=== PATIENT | male | born 1940 | race Caucasian/White ===

== ENCOUNTER → 2018-11-28 08:09 | Outpatient (CLI) | payer MEDICARE, OTHER, SELFPAY ==
--- NOTE | 2018-11-28 | DI.US.S_ITS ---
PROCEDURE: US SOFT TISSUE HEAD AND NECK INDICATIONS: LEFT PAROTID AREA MASS; POSSIBLE FNA TECHNIQUE: Real-time scanning was performed of the neck region of interest, with image documentation. COMPARISON: Outside Facility, RG, CT MAXILLOFACIAL W / WO CONTRAST, 11/09/2018, 14:58. Outside Facility, RG, US SOFT TISSUE HEAD OR NECK, 11/07/2018, 16:20. FINDINGS: The previously identified heterogeneous mass on the prior study from 11/07/18 is not visible on the prior examination. IMPRESSION: Previous identified heterogeneous mass on the prior study not visible. Therefore planned FNA was canceled. If there is sufficient clinical suspicion, a repeat ultrasound, or CT could be performed in 3 months. Alternatively as previously discussed on the prior CT from 11/09/18, a PET/CT could also assess for sonographically occult recurrent tumor, if there is high clinical suspicion. Dictated by: Alex Walter M.D. on 11/28/2018 at 17:44 Approved by: Alex Walter M.D. on 11/28/2018 at 17:46
== END ==
PROVIDERS: Visit Provider Student in an Organized Health Care Education/Training Program
DX: K11.9 Disease of salivary gland, unspecified (principal)
CPT/HCPCS: 76536

== ENCOUNTER → 2022-07-01 14:32 | Outpatient (CLI) | payer MEDICARE, OTHER, SELFPAY ==
--- NOTE | 2022-07-01 | DI.NM.S_ITS ---
PROCEDURE: NM EXERCISE TREADMILL NON NUC COMPARISON: None. INDICATIONS: Other forms of dyspnea FINDINGS: The patient exercised for 3 minutes and 46 seconds reaching 4.6 METs, DELFINO +17%. Normal BP response to exercise. No diagnostic ST changes or ectopy during the study. No angina during the study. IMPRESSION: Low risk, normal treadmill ECG only stress test with reduced exercise tolerance (DELFINO +17%). Dictated by: Gregg Moreno MD on 07/04/2022 at 13:09 Approved by: Gregg Moreno MD on 07/04/2022 at 13:11
== END ==
PROVIDERS: PCP Student in an Organized Health Care Education/Training Program; Referring Provider Student in an Organized Health Care Education/Training Program; Visit Provider Student in an Organized Health Care Education/Training Program
DX: R06.09 Other forms of dyspnea (principal)
CPT/HCPCS: 93017

== ENCOUNTER → 2022-08-22 15:03 | Outpatient (CLI) | payer MEDICARE, OTHER, SELFPAY ==
--- NOTE | 2022-08-22 15:07 | DI.NM.S_ITS ---
PROCEDURE: NM EXERCISE TREADMILL NON NUC COMPARISON: None INDICATIONS: DYSPNEA FINDINGS: Rest ECG sinus rhythm. Georges protocol 3:11, maximum heart rate 105 bpm (76% peak predicted), maximum blood pressure 170/90, 4.6 METS, DELFINO +29%. Stress ECG sinus tachycardia, no ST segment changes or arrhythmias. The patient did not complain of exercise-induced chest pain. IMPRESSION: Decreased sensitivity exercise stress test due to inability to achieve target heart rate. No evidence of inducible ischemia at the level of heart rate achieved. Normal hemodynamic response. Reduced exercise capacity. Dictated by: Carley Casas D.O. on 08/22/2022 at 16:36 Approved by: Carley Casas D.O. on 08/22/2022 at 16:44
== END ==
PROVIDERS: PCP Student in an Organized Health Care Education/Training Program; Referring Provider Student in an Organized Health Care Education/Training Program; Visit Provider Student in an Organized Health Care Education/Training Program
DX: R06.09 Other forms of dyspnea (principal)
CPT/HCPCS: 93017

== ENCOUNTER 2022-12-28 11:46 | Outpatient (CLI) | payer MEDICARE, OTHER, SELFPAY ==
[2022-12-28] VITALS (8 sets, daily range): BP systolic 137–172; BP diastolic 71–89; PULSE 52–78; RESP 16–20; TEMP 36.8; O2SAT 92–100
--- NOTE | 2022-12-28 11:47 | DI.RAD.S_ITS ---
PROCEDURE: PAIN L INTERLAMINAR/CAUDAL INJ INDICATIONS: RADICULOPATHY COMPARISON: [facility], CR, XR LUMBAR SPINE WITH FLEXION EXTENSION 5 VIEWS, 10/11/2022, 12:49. FINDINGS: Fluoroscopic spot filming was performed to verify placement of a spinal needle at the L5-S1 level, as labeled on the films. Appropriate location of the needle tip was confirmed by injection of iodinated contrast. IMPRESSION: No significant intraprocedural abnormality. Dictated by: Warren Moreira M.D. on 12/28/2022 at 17:37 Approved by: Warren Moreira M.D. on 12/28/2022 at 17:38
[2022-12-28] MEDS: MIDAZOLAM 2 MG/2 ML VIAL 1 MG IV (13:12)
[2022-12-28] MEDS: DEXAMETHASONE 10 MG/ML VIAL INJ (13:16)
[2022-12-28] MEDS: IOPAMIDOL 15 ML VIAL 3 ML INJ (13:16)
--- NOTE | 2022-12-28 16:28 | P.PCN_ITS ---
Date/Time/Diagnoses Date of procedure: 12/28/22 Time of procedure: 13:00 Procedure Notes Physician: Wai Vidal Total Fluoroscopy time (seconds): 11 Total sedation minutes: 10 Procedure in detail & Post-procedure care: L5-S1 Interlaminar Epidural Steroid Injection Indications: Armani is presenting for treatment of lumbar radiculopathy with low back and leg pain. Preoperative diagnosis: Lumbar radiculopathy Postoperative diagnosis: Same Focused Examination: Ax3 Mood and affect are normal Vital Signs: VSS ASA: 2 Consent: Following review of allergies and potential side effects/complications, including, but not necessarily limited to, infection, allergic reaction, local tissue breakdown, stroke, temporary or permanent nerve injury, paralysis, and possible , the patient indicated that they understood and agreed to proceed.? An informed consent document was signed by the patient, witnessed by a nurse and placed in the patient's chart.? Additionally, other treatment options including medications and physical therapy were reviewed with the patient. All questions were answered. Site was then marked. Anesthesia: After review of previous anesthetic history and IV conscious sedation, the patient was deemed safe to proceed with today's procedure with IV conscious sedation. IV sedation was accomplished with midazolam 1 mg administered by the RN after order by Dr. Vidal. Sedation was titrated to patient comfort during the course of the procedure. Patient remained responsive to all verbal commands. Position: Prone Monitoring: NIBP, Pulse oximetry, 3 lead EKG Needle used: 18 G 3.5? Tuohy Contrast: Isovue 300M Injectate: Dexamethasone 10 mg with 1% lidocaine 2 mL Technique: The skin was prepped with chloraprep and then draped in a sterile fashion. Time out was performed as per protocol. Oxygen applied via NC. Skin and subcutaneous structures of the needle entry site was then infiltrated with 3 mL of lidocaine 1%. Under AP, lateral and contralateral oblique fluoroscopic control, the Tuohy needle was guided into the L5-S1 epidural space. The space was accessed with loss of resistance technique. Isovue 300M was then injected and the spread was consistent with the epidural space. There was no evidence for intravascular or intrathecal uptake. After negative aspiration, the above- mentioned injectate was then slowly administered and the needle withdrawn. The patient expressed no unusual discomfort or paresthesias during the injection. Band-Aids applied to injection sites. EBL: less than 1 ml Complications: None Post Procedure: Patient was taken to the recovery and monitored. The patient was provided a Pain Log to continue to record the patient's response to the target- specific procedure prior to the patient's follow-up visit with the referring physician. Patient was stable upon discharge. Detailed post procedure instructions were provided. Patient was asked to call in the event of worsening pain, fever, weakness, numbness or bladder or bowel incontinence.
== END 2022-12-28 13:50 | disposition home or self-care (01) ==
PROVIDERS: PCP Student in an Organized Health Care Education/Training Program; Referring Provider Anesthesiology; Visit Provider Anesthesiology
DX: M54.16 Radiculopathy, lumbar region (principal)
CPT/HCPCS: 62323; 99152; J1100; J2250

== ENCOUNTER → 2023-02-14 11:36 | Outpatient (CLI) | payer MEDICARE, OTHER, SELFPAY ==
--- NOTE | 2023-02-14 11:37 | DI.MRI.S_ITS ---
PROCEDURE: MR PELVIS WO CON INDICATIONS: h/o sacral trauma TECHNIQUE: Noncontrast axial and oblique coronal T1 spin echo and STIR through the sacrum. COMPARISON: None. FINDINGS: Image quality: Excellent. Bones: No acute trabecular bone injury or fracture is seen. Degenerative changes are seen at the sacroiliac joints bilaterally and in the included lumbar spine. No bony ankylosis or signs of sacroiliitis. No suspicious marrow space occupying lesions. Soft tissues: No presacral masses or edema. Grade 2-3 fatty infiltration of the paraspinous musculature. Rectum appears normal in caliber and wall thickness. No pathologic free pelvic fluid. IMPRESSION: 1. No acute sacral fracture or osseous contusion is seen. 2. [id number] sacroiliac osteoarthrosis. Degenerative changes are noted in the included lumbar spine. Approved by: Luis Rider M.D. on 02/14/2023 at 16:39
== END ==
PROVIDERS: PCP Student in an Organized Health Care Education/Training Program; Referring Provider Anesthesiology; Visit Provider Anesthesiology
DX: M54.17 Radiculopathy, lumbosacral region (principal); M47.898 Other spondylosis, sacral and sacrococcygeal region
CPT/HCPCS: 72195

== ENCOUNTER 2023-05-17 13:30 | Outpatient (CLI) | payer MEDICARE, OTHER, SELFPAY ==
[2023-05-17] VITALS (8 sets, daily range): BP systolic 136–173; BP diastolic 77–84; PULSE 54–63; RESP 16–20; TEMP 35.9; O2SAT 98–100
[2023-05-17] MEDS: MIDAZOLAM 2 MG/2 ML VIAL 1 MG IV (14:08)
[2023-05-17] MEDS: DEXAMETHASONE 10 MG/ML VIAL INJ (14:17)
[2023-05-17] MEDS: iopamidoL 15 ML VIAL 3 ML INJ (14:17)
--- NOTE | 2023-05-17 15:30 | DI.RAD.S_ITS ---
PROCEDURE: PAIN JOINT INJECTION MID INDICATIONS: COCCYDYNIA COMPARISON: None. TECHNIQUE: Three fluoroscopic spot films and 20 seconds of fluoroscopic time was utilized during an intraoperative pain injection of the coccyx FINDINGS: Lateral projection of the coccyx shows needle placement in intersegmental coccyx IMPRESSION: Fluoroscopic guidance Approved by: Singh Delgado M.D. on 05/17/2023 at 18:33
--- NOTE | 2023-05-17 15:33 | P.PCN_ITS ---
Date/Time/Diagnoses Date of procedure: 05/17/23 Time of procedure: 14:00 Procedure Notes Physician: Wai Vidal Total Fluoroscopy time (seconds): 20 Total sedation minutes: 16 Procedure in detail & Post-procedure care: Sacrococcygeal Joint Injection Indications: Jameel is presenting for treatment of coccydynia with low back pain. Preoperative diagnosis: Coccydynia Postoperative diagnosis: Same Focused Examination: Ax3 Mood and affect are normal Vital Signs: VSS ASA: 2 Consent: Following review of allergies and potential side effects/complications, including, but not necessarily limited to, infection, allergic reaction, local tissue breakdown, stroke, temporary or permanent nerve injury, paralysis, and possible , the patient indicated that they understood and agreed to proceed.? An informed consent document was signed by the patient, witnessed by a nurse and placed in the patient's chart.? Additionally, other treatment options including medications and physical therapy were reviewed with the patient. All questions were answered. Site was then marked. Anesthesia: After review of previous anesthetic history and IV conscious sedation, the patient was deemed safe to proceed with today's procedure with IV conscious sedation. IV sedation was accomplished with midazolam 1 mg administered by the RN after order by Dr. Vidal. Sedation was titrated to patient comfort during the course of the procedure. Patient remained responsive to all verbal commands. Position: Prone Monitoring: NIBP, Pulse oximetry, 3 lead EKG Needle used: 25 gauge, 1.5 in hypodermic needle Contrast: Isovue 300-M 2mL Injectate: Depo-Medrol 40 mg with 1% lidocaine 4 mL Technique: The skin was prepped with chloraprep and then draped in a sterile fashion. Time out was performed as per protocol. Oxygen applied via NC. The entry point for entering/approaching the sacrococcygeal joint was identified. Skin and subcutaneous structures of the needle entry site was then infiltrated with 3 mL of lidocaine 1%. Under AP and lateral control, the needle was guided through the sacrococcygeal joint to the anterior aspect of the joint. Contrast was then injected and the spread was consistent with the expected location of the ganglion impar. After negative aspiration, 3 mL of injectate were injected at this location. The needle was then withdrawn slightly so that the tip was within the sacrococcygeal joint. Intra-articular placement was confirmed with contrast. After negative aspiration, the remaining 2 mL of injectate was placed intra-articularly. There was no evidence for intravascular, peritoneal or spread within the intestines. The needles were then withdrawn. The patient expressed no unusual discomfort or paresthesias during needle positioning or injection. Band-Aids applied to injection sites. EBL: less than 1 ml Complications: None Post Procedure: Patient was taken to the recovery and monitored. The patient was provided a Pain Log to continue to record the patient's response to the target- specific procedure prior to the patient's follow-up visit with the referring physician. Patient was stable upon discharge. Detailed post procedure in structions were provided. Patient was asked to call in the event of worsening pain, fever, weakness, numbness or bladder or bowel incontinence.
== END 2023-05-17 14:43 | disposition home or self-care (01) ==
PROVIDERS: PCP Student in an Organized Health Care Education/Training Program; Referring Provider Anesthesiology; Visit Provider Anesthesiology
DX: M53.3 Sacrococcygeal disorders, not elsewhere classified (principal)
CPT/HCPCS: 20605; 77002; 99152; J1100; J2250

== ENCOUNTER 2023-09-13 12:26 | Outpatient (CLI) | payer MEDICARE, OTHER, SELFPAY ==
[2023-09-13] VITALS (8 sets, daily range): BP systolic 117–142; BP diastolic 65–76; PULSE 62–71; RESP 14–22; TEMP 36.9; O2SAT 97–99
--- NOTE | 2023-09-13 13:30 | DI.RAD.S_ITS ---
PROCEDURE: PAIN JOINT INJECTION MID INDICATIONS: Coccydynia COMPARISON: [facility], CR, XR LUMBAR SPINE WITH FLEXION EXTENSION 5 VIEWS, 10/11/2022, 12:49. MR, MR PELVIS WO CON, 02/14/2023, 11:58. TECHNIQUE: 3 fluoroscopy images obtained for pain management. FINDINGS: Joint injected: Coccyx IMPRESSION: Fluoroscopy guidance for pain management.. Dictated by: Melchor Solares M.D. on 09/13/2023 at 17:04 Approved by: Melchor Solares M.D. on 09/13/2023 at 17:05
[2023-09-13] MEDS: MIDAZOLAM 2 MG/2 ML VIAL 1 MG IV (13:35)
[2023-09-13] MEDS: iopamidoL 15 ML VIAL 3 ML INJ (13:39)
[2023-09-13] MEDS: DEXAMETHASONE 10 MG/ML VIAL IV (13:51)
--- NOTE | 2023-09-13 13:59 | PC.NURSE ---
Decadron Use During patient's procedure today Dr. Vidal asked this RN to get decadron 10mg for patient's injection. Dr. Vidal stated that he would be using the decadron for the coccyx injection rather than the DEPO.
--- NOTE | 2023-09-13 16:54 | P.PCN_ITS ---
Date/Time/Diagnoses Date of procedure: 09/13/23 Time of procedure: 13:30 Procedure Notes Physician: Wai Vidal Total Fluoroscopy time (seconds): 22 Total sedation minutes: 16 Procedure in detail & Post-procedure care: Coccyx/ganglion impar injection Indications: Armani is presenting for treatment of coccydynia with low back pain. Preoperative diagnosis: Coccydynia Postoperative diagnosis: Same Focused Examination: Ax3 Mood and affect are normal Vital Signs: VSS ASA: 2 Consent: Following review of allergies and potential side effects/complications, including, but not necessarily limited to, infection, allergic reaction, local tissue breakdown, stroke, temporary or permanent nerve injury, paralysis, and possible , the patient indicated that they understood and agreed to proceed.? An informed consent document was signed by the patient, witnessed by a nurse and placed in the patient's chart.? Additionally, other treatment options including medications and physical therapy were reviewed with the patient. All questions were answered. Site was then marked. Anesthesia: After review of previous anesthetic history and IV conscious sedation, the patient was deemed safe to proceed with today's procedure with IV conscious sedation. IV sedation was accomplished with midazolam 1 mg administered by the RN after order by Dr. Vidal. Sedation was titrated to patient comfort during the course of the procedure. Patient remained responsive to all verbal commands. Position: Prone Monitoring: NIBP, Pulse oximetry, 3 lead EKG Needle used: 25 gauge, 1.5 in hypodermic needle Contrast: Isovue 300-M 2mL Injectate: Dexamethasone 10 mg with 0.5% bupivacaine 2 mL Technique: The skin was prepped with chloraprep and then draped in a sterile fashion. Time out was performed as per protocol. Oxygen applied via NC. The entry point for entering/approaching the sacrococcygeal joint was identified. Skin and subcutaneous structures of the needle entry site was then infiltrated with 3 mL of lidocaine 1%. Under AP and lateral control, the needle was guided through the sacrococcygeal joint to the anterior aspect of the joint. Contrast was then injected and the spread was consistent with the expected location of the ganglion impar. After negative aspiration, 3 mL of injectate were injected at this location. The needle was then withdrawn slightly so that the tip was within the sacrococcygeal joint. Intra-articular placement was confirmed with contrast. After negative aspiration, the remaining 2 mL of injectate was placed intra-articularly. There was no evidence for intravascular, peritoneal or spread within the intestines. The needles were then withdrawn. The patient expressed no unusual discomfort or paresthesias during needle positioning or injection. Band-Aids applied to injection sites. EBL: less than 1 ml Complications: None Post Procedure: Patient was taken to the recovery and monitored. The patient was provided a Pain Log to continue to record the patient's response to the target- specific procedure prior to the patient's follow-up visit with the referring physician. Patient was stable upon discharge. Detailed post procedure instructions were provided. Patient was asked to call in the event of worsening pain, fever, weakness, numbness or bladder or bowel incontinence.
== END 2023-09-13 14:09 | disposition home or self-care (01) ==
LOC: RAD 12:27
PROVIDERS: PCP Student in an Organized Health Care Education/Training Program; Referring Provider Anesthesiology; Visit Provider Anesthesiology
DX: M53.3 Sacrococcygeal disorders, not elsewhere classified (principal)
CPT/HCPCS: 20605; 77002; 99152; J1010; J1100; J2250

== ENCOUNTER → 2023-12-07 09:48 | Outpatient (CLI) | payer MEDICARE, OTHER, SELFPAY ==
[2023-12-07 10:38] LABS: Add Manual Diff / Slide Review NO; Basophils Absolute Auto 100 /uL (0-100); Basophils Percent Auto 0.9 % (0-2); Eosinophils Absolute Auto 200 /uL (0-450); Eosinophils Percent Auto 3.6 % (2-4); Hematocrit 38.9 % (41-53); Hemoglobin 13.2 g/dL (13.5-17.5); Lymphocytes Absolute Auto 1300 /uL (1100-4500); Mean Corpuscular HGB Conc 33.8 % (30-36); Mean Corpuscular Hemoglobin 32.7 PG (26-34); Mean Corpuscular Volume 96.6 fL (80-100); Monocytes Absolute Auto 800 /uL (0-900); Monocytes Percent Auto 12.2 % (3-14); Neutrophils Absolute Auto 4000 /uL (1500-7000); Neutrophils Percent Auto 63.3 % (50-75); Platelet Count 275 X10^3/uL (150-400); Red Blood Cell Count 4.02 X10^6/uL (4.5-5.9); Red Cell Distribution Width 13.3 % (11.6-14.8); White Blood Cell Count 6.3 X10^3/uL (4.5-11.0)
[2023-12-07 10:50] LABS: Hemoglobin A1C% w Est Avg Glu 7.5 % (4.0-6.0)
[2023-12-07 11:00] LABS: Alanine Aminotransferase 15 IU/L (<50); Albumin 4.4 g/dL (3.5-5.0); Albumin Globulin Ratio 1.6 (1.0-2.8); Alkaline Phosphatase 94 U/L (38-126); Aspartate Aminotransferase 25 IU/L (17-59); BUN Creatinine Ratio 15.8 (6-22); Bilirubin Total 0.8 mg/dL (0.2-1.3); Blood Urea Nitrogen 23 mg/dL (9-20); Calcium 9.7 mg/dL (8.4-10.2); Carbon Dioxide 25 mmol/L (22-32); Chloride 105 mmol/L (98-107); Estimated Glomerular Filt Rate 47 mL/min (>60); Globulin 2.8 g/dL (1.7-4.1); Glucose 156 mg/dL (80-110); HEMOLYSIS < 15 (0-50); Potassium 5.2 mmol/L (3.4-5.1); Sodium 138 mmol/L (137-145); Total Protein 7.2 g/dL (6.3-8.2)
[2023-12-07 11:32] LABS: Prostate Specific Antigen Scrn 3.06 ng/mL (0.1-4.0)
--- NOTE | 2023-12-07 11:33 | DI.RAD.S_ITS ---
PROCEDURE: XR ELBOW RT MIN 3V INDICATIONS: bilateral hand/wrist/elbow pain TECHNIQUE: 3 views of the elbow were acquired. COMPARISON: None. FINDINGS: Bones: No fractures or dislocations. No suspicious bony lesions. Soft tissues: No elbow joint effusion. No suspicious soft tissue calcifications. IMPRESSION: No acute bone bony abnormality or significant joint effusion. Dictated by: Ector Hicks M.D. on 12/07/2023 at 15:24 Approved by: Ector Hicks M.D. on 12/07/2023 at 15:25
--- NOTE | 2023-12-07 11:33 | DI.RAD.S_ITS ---
PROCEDURE: XR WRIST RT MIN 3V INDICATIONS: bilateral hand/wrist/elbow pain TECHNIQUE: 4 views of the wrist were acquired. COMPARISON: None. FINDINGS: Bones: No fractures or dislocations. No suspicious bony lesions. Arthritic changes with joint space narrowing, sclerosis and mild subluxation in the 1st carpometacarpal joint. There is joint space narrowing in the scaphoid trapezial joint. Soft tissues: No suspicious soft tissue calcifications. 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 Dictated by: Ector Hicks M.D. on 12/07/2023 at 15:28 Approved by: Ector Hicks M.D. on 12/07/2023 at 15:30
--- NOTE | 2023-12-07 11:33 | DI.RAD.S_ITS ---
PROCEDURE: XR WRIST LT MIN 3V INDICATIONS: bilateral hand/wrist/elbow pain TECHNIQUE: 4 views of the wrist were acquired. COMPARISON: None. FINDINGS: Bones: No fractures or dislocations. No suspicious bony lesions. Arthritic changes are noted in the 1st carpal metacarpal joint with joint space narrowing, sclerosis and mild subluxation. Soft tissues: No suspicious soft tissue calcifications. 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 Dictated by: Ector Hicks M.D. on 12/07/2023 at 15:25 Approved by: Ector Hicks M.D. on 12/07/2023 at 15:27
--- NOTE | 2023-12-07 11:33 | DI.RAD.S_ITS ---
PROCEDURE: XR ELBOW LT MIN 3V INDICATIONS: bilateral hand/wrist/elbow pain TECHNIQUE: 3 views of the elbow were acquired. COMPARISON: None. FINDINGS: Bones: No fractures or dislocations. No suspicious bony lesions. Soft tissues: No elbow joint effusion. No suspicious soft tissue calcifications. IMPRESSION: No acute bony abnormality or significant joint effusion. Dictated by: Ector Hicks M.D. on 12/07/2023 at 15:22 Approved by: Ector Hicks M.D. on 12/07/2023 at 15:24
--- NOTE | 2023-12-07 11:33 | DI.RAD.S_ITS ---
PROCEDURE: XR HAND LT MIN 3V INDICATIONS: bilateral hand/wrist/elbow pain TECHNIQUE: 3 views of the hand(s) acquired. COMPARISON: None. FINDINGS: Bones: No fractures or dislocations. Carpal bones are normally aligned. No suspicious bony lesions. Osteoarthritic changes in the 1st carpal metacarpal joint. Soft tissues: No suspicious soft tissue calcifications. 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 Dictated by: Ector Hicks M.D. on 12/07/2023 at 15:32 Approved by: Ector Hicks M.D. on 12/07/2023 at 15:33
--- NOTE | 2023-12-07 11:33 | DI.RAD.S_ITS ---
PROCEDURE: XR HAND RT MIN 3V INDICATIONS: bilateral hand/wrist/elbow pain TECHNIQUE: 3 views of the hand(s) acquired. COMPARISON: None. FINDINGS: Bones: No fractures or dislocations. Carpal bones are normally aligned. No suspicious bony lesions. Osteoarthritic changes noted in the 1st carpometacarpal joint. Soft tissues: No suspicious soft tissue calcifications. 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 Dictated by: Ector Hicks M.D. on 12/07/2023 at 15:30 Approved by: Ector Hicks M.D. on 12/07/2023 at 15:32
== END ==
PROVIDERS: PCP Family Medicine; Referring Provider Family Medicine; Visit Provider Family Medicine
DX: E11.9 Type 2 diabetes mellitus without complications (principal); Z12.5 Encounter for screening for malignant neoplasm of prostate; N40.1 Benign prostatic hyperplasia with lower urinary tract symptoms; N13.8 Other obstructive and reflux uropathy; K21.9 Gastro-esophageal reflux disease without esophagitis; M25.531 Pain in right wrist; M25.532 Pain in left wrist; M25.521 Pain in right elbow; M25.522 Pain in left elbow; M79.642 Pain in left hand; M79.641 Pain in right hand; M19.032 Primary osteoarthritis, left wrist; M19.031 Primary osteoarthritis, right wrist; M19.042 Primary osteoarthritis, left hand; M19.041 Primary osteoarthritis, right hand
CPT/HCPCS: 36415; 73080; 73110; 73130; 80053; 83036; 85025; G0103

== ENCOUNTER → 2023-12-11 11:08 | Outpatient (CLI) | payer MEDICARE, OTHER, SELFPAY ==
--- NOTE | 2023-12-11 11:09 | DI.CT.S_ITS ---
PROCEDURE: CT PEL WO CON INDICATIONS: Sacrococcygeal disorders, not elsewhere classified TECHNIQUE: Noncontrast 3 mm axial sections acquired through the bony pelvis, with coronal and sagittal reformatting. COMPARISON: None. FINDINGS: Image quality: Excellent Bones: Moderate lower lumbar facet arthropathy. Bridging osteophyte of the right sacroiliac joint. Chondrocalcinosis of bilateral sacroiliac joint, representing CPPD arthropathy. Mild degenerative changes of the left sacroiliac joint. The sacrum is intact. The right hip is well aligned. No acute fracture or dislocation of the right hip. The left hip is well aligned. No acute fracture or dislocation of the left hip. Mild degenerative changes of bilateral hip, right greater than left. Soft tissues: The bladder is unremarkable. Moderate enlargement of the prostate with prostate calcification. Moderate diverticulosis of the proximal sigmoid colon, partially visualized. No bowel obstruction in the pelvis. Moderate calcification of the distal abdominal aorta. No pelvic or bilateral inguinal lymphadenopathy. IMPRESSION: Chronic changes as described above. Dictated by: Isabella Ace M.D. on 12/12/2023 at 18:08 Approved by: Isabella Ace M.D. on 12/12/2023 at 18:13
== END ==
PROVIDERS: PCP Family Medicine; Referring Provider Neurological Surgery; Visit Provider Neurological Surgery
DX: M53.3 Sacrococcygeal disorders, not elsewhere classified (principal); M47.816 Spondylosis without myelopathy or radiculopathy, lumbar region; M11.28 Other chondrocalcinosis, vertebrae; N40.0 Benign prostatic hyperplasia without lower urinary tract symptoms; K57.30 Diverticulosis of large intestine without perforation or abscess without bleeding; I70.0 Atherosclerosis of aorta
CPT/HCPCS: 72192

== ENCOUNTER → 2024-05-21 12:02 | Outpatient (CLI) | payer MEDICARE, OTHER, SELFPAY ==
--- NOTE | 2024-05-21 12:03 | DI.RAD.S_ITS ---
PROCEDURE: XR KNEE LT 3V INDICATIONS: eval knee pain TECHNIQUE: 3 views of the knee were acquired. COMPARISON: None. FINDINGS: Bones: There are no osseous abnormalities. Joints: The tibialfemoral and patellofemoral joints show mild degeneration. Soft tissues: Normal IMPRESSION: Mild degeneration. Dictated by: Leroy Jackson M.D. on 05/22/2024 at 10:51 Approved by: Leroy Jackson M.D. on 05/22/2024 at 10:51
--- NOTE | 2024-05-21 12:03 | DI.RAD.S_ITS ---
PROCEDURE: XR KNEE RT 3V INDICATIONS: eval knee pain TECHNIQUE: 3 views of the knee were acquired. COMPARISON: None. FINDINGS: Bones: There are no osseous abnormalities. Joints: The tibialfemoral and patellofemoral joints show mild degeneration. Soft tissues: Normal IMPRESSION: Mild degeneration. Dictated by: Leroy Jackson M.D. on 05/22/2024 at 10:54 Approved by: Leroy Jackson M.D. on 05/22/2024 at 10:54
== END ==
PROVIDERS: PCP Family Medicine; Referring Provider Family Medicine; Visit Provider Family Medicine
DX: M25.561 Pain in right knee (principal); M25.562 Pain in left knee
CPT/HCPCS: 73562

== ENCOUNTER 2024-12-05 12:37 | Emergency (ER) | payer MEDICARE, OTHER, SELFPAY ==
[2024-12-05] VITALS (12 sets, daily range): BP systolic 111–158; BP diastolic 68–87; PULSE 70–82; RESP 14–24; TEMP 36.4; O2SAT 96–99; BMI 25.7
--- NOTE | 2024-12-05 12:45 | EKG_ITS ---
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
--- NOTE | 2024-12-05 12:45 | DI.RAD.S_ITS ---
PROCEDURE: XR CHEST 1V INDICATIONS: Chest Pain TECHNIQUE: One view of the chest was acquired. COMPARISON: None. FINDINGS: Mildly enlarged cardiopericardial silhouette. Mildly prominent kelli, mild pulmonary vascular congestion. Mild bibasilar subsegmental atelectasis. Mild calcifications of the aortic arch and tortuous descending aorta. Moderate degenerative changes of the thoracic spine with mild dextroscoliosis. No pneumothorax, no pleural effusion, no lobar consolidation Irregularity of the right clavicle mid diaphysis most likely related to 2 remote fracture with callus formation possible nonunion. IMPRESSION: Mildly enlarged cardiopericardial silhouette. Pulmonary vascular congestion. Other findings as above. If symptoms persist or worsen, or there is high clinical suspicion of thoracic abnormality, CT chest could be performed. Dictated by: Godwin James M.D. on 12/05/2024 at 13:59 Approved by: Godwin James M.D. on 12/05/2024 at 14:03
--- NOTE | 2024-12-05 13:07 | ED.SYNCOPE ---
HPI - Syncope General Chief Complaint: Syncope Stated Complaint: Fell hit head x 7 days ago having headaches Time Seen by Provider: 12/05/24 12:41 Source: patient Mode of arrival: Ambulatory Limitations: no limitations History of Present Illness HPI narrative: 84-year-old gentleman history of depression, well-controlled type 2 diabetes, chronic renal disease, borderline hypertension fell in the past 3 weeks the 1st time on a bench for which he did not pass out and the 2nd time a week ago for which she got off the couch after watching TV and hit the wall on the way down. Patient denies loss of consciousness, headache, dizziness, blurred vision, chest pain, shortness of breath, nausea, vomiting, back pain, gait instability, bowel or bladder incontinence. He has had a headache since then for which he is on aspirin and came in to be evaluated today. Related Data Home Medications ?Medication ?Instructions ?Recorded ?Confirmed aspirin 81 mg tablet,delayed 81 mg PO QDAY ##0 04/10/17 08/30/24 release cholecalciferol (vitamin D3) 25 1,000 unit PO QDAY ##0 04/10/17 08/30/24 mcg (1,000 unit) tablet (Vitamin D3) cyanocobalamin (vitamin B-12) 1,000 mcg PO DAILY 01/26/21 08/30/24 1,000 mcg capsule melatonin 5 mg capsule 5 mg PO BEDTIME 01/26/21 08/30/24 omeprazole 20 mg capsule,delayed 20 mg PO DAILY #0 caps 01/26/21 08/30/24 release psyllium [Metamucil] PO DAILY 01/26/21 08/30/24 Previous Rx's ?Medication ?Instructions ?Recorded metformin 500 mg tablet 500 mg PO BID #60 tabs 09/04/24 citalopram 20 mg tablet 20 mg PO DAILY #90 tabs 09/10/24 Allergies Allergy/AdvReac Type Severity Reaction Status Date / Time gabapentin Allergy Mild Verified 12/05/24 12:46 lactase (From DAIRY AID) Allergy Unknown Verified 12/05/24 12:46 levofloxacin (From LEVAQUIN) Allergy Unknown Verified 12/05/24 12:46 Eaaouxc-LGH-KbP Reductase Allergy Unknown Verified 12/05/24 12:46 Inhibitor (XFKHOUH-XEQ-ORD REDUCTASE INHIBITOR) lisinopril Allergy Verified 08/07/25 12:46 Review of Systems Review of Systems ROS Unobtainable: All systems reviewed & are unremarkable except as noted in HPI and below Patient History Medical History Bilateral knee pain Chronic renal insufficiency, stage II (mild) Osteoarthritis Allergies Broken collarbone Chronic back pain Mumps Measles Chicken pox Tinnitus History of urinary incontinence History of kidney disease GI bleeding Skin cancer Melanoma (~2021) Nephrolithiasis Coccydynia Radiculopathy, lumbosacral region SI (sacroiliac) joint dysfunction Lumbar radiculopathy Dorsalgia Lumbar facet arthropathy Lumbar spondylosis History of nephrolithiasis Sepsis Basal cell carcinoma Calvillo esophagus Hiatal hernia GERD (gastroesophageal reflux disease) Diabetes Depression Arthritis Surgical History Anesthesia History of surgery History of repair of hiatal hernia History of cataract removal with insertion of prosthetic lens Diverticulitis H/O rotator cuff surgery Hx of cholecystectomy Family History Mother Alzheimer's disease Social History marital status: number of children: 2 occupational status: other Previous occupational history: retired leisure activities: exercise Smoking Status: Unknown if ever smoked alcohol intake: never caffeine: No frequency: 3-4 times per week duration: 45-60 minutes/day Smoking Status: Unknown if ever smoked Exam Narrative Exam Narrative: GENERAL: [84] year old patient appears stated age. Well-developed patient, in mild distress. HEAD: Atraumatic. Normocephalic. EYES: Pupils equal round and reactive. Extraocular motions intact. No scleral icterus. No injection or drainage. ENT: Nose without bleeding, purulent drainage. Throat without erythema, tonsillar hypertrophy or exudate. Airway patent. NECK: Trachea midline. Non tender CARDIOVASCULAR: Regular rate and rhythm without murmurs, gallops, or rubs. RESPIRATORY: Clear to auscultation. Breath sounds equal bilaterally. No wheezes, rales, or rhonchi. GASTROINTESTINAL: Abdomen soft, non-tender, nondistended. EXTREMITIES: No edema or joint tenderness. BACK: Nontender without deformity or crepitance. No flank tenderness. NEURO: AOx3. GCS 15 nonfocal neuro exam 5 out of 5 upper and lower extremity bilaterally, negative pronator drift, nvvknp-cy-tdji opposite syyv-pe-qkcx zcnsyk-yy-ntoq all intact. SKIN: No rash or erythema of visible areas Initial Vital Signs Initial Vital Signs: Vital Signs Temperature 97.5 F L 12/05/24 12:38 Pulse Rate 82 12/05/24 12:38 Respiratory Rate 15 12/05/24 12:38 Blood Pressure 157/85 H 12/05/24 12:38 Pulse Oximetry 96 12/05/24 12:38 Oxygen Delivery Method Room Air 12/05/24 12:38 Course Orders Ordered: ED Orders 12/05/24 12:45 XR chest 1V Stat Complete Blood Count AUTO DIFF Stat Comprehensive Metabolic Panel Stat Lipase Stat Magnesium Stat NT-proBNP (BNP-Adult 18+) Stat PTT Partial Thromboplastin Storm Stat Prothrombin Time INR Stat Troponin & CK Cardiac Panel Stat EKG-12 Lead Stat Vital Signs Vital signs: Vital Signs - 8 hr 12/05/24 12:38 Temperature 97.5 F L Pulse Rate 82 Respiratory Rate 15 Blood Pressure 157/85 H Pulse Oximetry 96 Oxygen Delivery Method Room Air MDM - Syncope Lab Data 12/05/24 13:03 12/05/24 13:03 Labs: Lab Results 12/05/24 Range/Units 13:03 WBC 7.9 (4.5-11.0) X10^3/uL RBC 4.12 L (4.5-5.9) X10^6/uL Hgb 13.5 (13.5-17.5) g/dL Hct 39.4 L (41-53) % MCV 95.7 (80-100) fL MCH 32.8 (26-34) PG MCHC 34.3 (30-36) % RDW 13.5 (11.6-14.8) % Plt Count 267 (150-400) X10^3/uL Neut % (Auto) 69.7 (50-75) % Lymph % (Auto) 15.0 L (25-40) % [facility] % (Auto) 11.4 (3-14) % Eos % (Auto) 2.8 (2-4) % Baso % (Auto) 1.1 (0-2) % Neut # (Auto) 5500 (0334-7017) /uL Lymph # (Auto) 1200 (3846-8597) /uL [facility] # (Auto) 900 (0-900) /uL Eos # (Auto) 200 (0-450) /uL Baso # (Auto) 100 (0-100) /uL PT 11.1 (9.4-12.5) SECONDS INR 1.0 (0.9-1.3) APTT 32 (25.1-36.5) SECONDS Sodium 139 (137-145) mmol/L Potassium 4.3 (3.4-5.1) mmol/L Chloride 105 (98-107) mmol/L Carbon Dioxide 22 (22-32) mmol/L BUN 23 H (9-20) mg/dL Creatinine 1.44 H (0.66-1.25) mg/dL Estimated GFR 48 L (>60) mL/min BUN/Creatinine Ratio 16.0 (6-22) Glucose 120 H (70-99) mg/dL Calcium 9.6 (8.4-10.2) mg/dL Magnesium 1.9 (1.6-2.3) mg/dL Total Bilirubin 0.6 (0.2-1.3) mg/dL AST 30 (17-59) IU/L ALT 20 (<50) IU/L Alkaline Phosphatase 100 (38-126) U/L Total Creatine Kinase 71 (55-170) U/L Troponin I < 0.012 (0.01-0.034) ng/mL NT-Pro-B Natriuret Pep 63 (<450) pg/mL Total Protein 7.9 (6.3-8.2) g/dL Albumin 4.6 (3.5-5.0) g/dL Globulin 3.3 (1.7-4.1) g/dL Albumin/Globulin Ratio 1.4 (1.0-2.8) Lipase 56 (23-300) U/L Imaging Data CT scan - head: Radiologist's Impression: [address] [address] [address] Scan Report Signed Patient: Armani Lucio MR#: [id number] : 1940 Acct:[id number] Age/Sex: 84 / M Date of Service: 12/05/24 Loc: ED Accession Number: [id number] Procedure: CT head/brain wo con Ordering Provider: Leroy Stokes D.O. PROCEDURE: CT HEAD/BRAIN WO CON INDICATIONS: fall TECHNIQUE: Noncontrast 4.5 mm thick angled axial sections acquired from the foramen magnum to the vertex, with coronal and sagittal reformats. For radiation dose reduction, the following was used: automated exposure control, adjustment of mA and/or kV according to patient size. COMPARISON: None. FINDINGS: Image quality: Diagnostic. Some images are limited by beam hardening artifacts most notably at the base of the skull. Diagnostic. Some images are limited by beam hardening artifacts most notably at the base of the skull. Ventricles and cortical sulci are nenwgrvs-do-rwckcmsi dilated commonly represents a pattern of atrophy however dilatation of the ventricles is somewhat out of proportion to dilatation of the cortical sulci and an element of communicating hydrocephalus could be considered. Extensive parafalcine calcifications versus parafalcine calcified meningioma are noted anteriorly. Hyperostosis frontalis interna or diffuse calvarium thickening is noted. Moderate areas of low-attenuation in the periventricular and deep white matter commonly related to chronic small vessel ischemic changes. Mild vascular calcifications bilateral cavernous, supraclinoid carotids. No CT evidence of intracranial hemorrhage, mass lesion, mass effect, acute or subacute infarct. The orbits, scalp, paranasal sinuses, mastoid air cells, middle ear cavities within normal limits. IMPRESSION: Atrophy and chronic small vessel ischemic changes as discussed above. Communicating hydrocephalus could be considered. No CT evidence of intracranial hemorrhage. If symptoms persist or worsen, or there is high clinical suspicion of intracranial abnormality, MRI could be performed. [address] [address] [address] Scan Report Signed Patient: Armani Lucio MR#: [id number] : 1940 Acct:[id number] Age/Sex: 84 / M Date of Service: 12/05/24 Loc: ED Accession Number: [id number] Procedure: CT angio head and neck Ordering Provider: Leroy Stokes D.O. PROCEDURE: CT ANGIO HEAD AND NECK INDICATIONS: fall TECHNIQUE: After the administration of intravenous contrast, 1 mm thick sections acquired from the aortic arch through the [place] of [place]. 3-dimensional pgqleww-nxasfymwh-qlfvhkgwah (MIP) and/or volume rendering reformats were acquired of the central intracranial vasculature and neck separately. For radiation dose reduction, the following was used: automated exposure control, adjustment of mA and/or kV according to patient size. COMPARISON: [facility], CT, CT HEAD/BRAIN WO CON, 12/05/2024, 13:17. FINDINGS: Image quality: Diagnostic. Cerebral CT Angiogram: Internal carotid arteries: No acute findings. Intracranial ICA are patent with no significant stenosis. No occlusion. No aneurysm. Anterior cerebral arteries: Unremarkable. No significant stenosis. No occlusion. No aneurysm. Middle cerebral arteries: Unremarkable. No significant stenosis. No occlusion. No aneurysm. Posterior cerebral arteries: Unremarkable. No significant stenosis. No occlusion. No aneurysm. Basilar artery: Unremarkable. No significant stenosis. No occlusion. No aneurysm. Vertebral arteries: Unremarkable as visualized. Dural venous sinuses: Unremarkable given phase of enhancement. Other: Arterial phase appearance of the brain parenchyma is unremarkable. Neck CT Angiogram: Internal carotid arteries: Unremarkable. No significant stenosis. No dissection or occlusion. Common carotid arteries: Unremarkable. No significant stenosis. No dissection or occlusion. External carotid arteries: Unremarkable. No occlusion. Vertebral arteries: There is occlusion of the V1 segment of the left vertebral artery, with reconstitution in the V2 segment. There is occlusion of the V3 segment, with reconstitution in the V4 segment. Aortic Arch and Mediastinum: Partially visualized aortic arch unremarkable without evidence of aneurysm. Origins of the great vessels unremarkable. Other: Arterial phase soft tissues of the neck and chest are unremarkable. IMPRESSION: No significant intracranial arterial abnormality is seen. 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 This is age indeterminate. Findings discussed with Dr. Stokes at 1:40 p.m. On 12/05/2024. [place] [address] CT Scan Report Signed Patient: Armani Lucio MR#: [id number] : 1940 Acct:[id number] Age/Sex: 84 / M Date of Service: 12/05/24 Loc: ED Accession Number: [id number] Procedure: CT head/brain wo con Ordering Provider: Leroy Stokes D.O. PROCEDURE: CT HEAD/BRAIN WO CON INDICATIONS: fall TECHNIQUE: Noncontrast 4.5 mm thick angled axial sections acquired from the foramen magnum to the vertex, with coronal and sagittal reformats. For radiation dose reduction, the following was used: automated exposure control, adjustment of mA and/or kV according to patient size. COMPARISON: None. FINDINGS: Image quality: Diagnostic. Some images are limited by beam hardening artifacts most notably at the base of the skull. Diagnostic. Some images are limited by beam hardening artifacts most notably at the base of the skull. Ventricles and cortical sulci are zknpskcc-lr-jpkayufj dilated commonly represents a pattern of atrophy however dilatation of the ventricles is somewhat out of proportion to dilatation of the cortical sulci and an element of communicating hydrocephalus could be considered. Extensive parafalcine calcifications versus parafalcine calcified meningioma are noted anteriorly. Hyperostosis frontalis interna or diffuse calvarium thickening is noted. Moderate areas of low-attenuation in the periventricular and deep white matter commonly related to chronic small vessel ischemic changes. Mild vascular calcifications bilateral cavernous, supraclinoid carotids. No CT evidence of intracranial hemorrhage, mass lesion, mass effect, acute or subacute infarct. The orbits, scalp, paranasal sinuses, mastoid air cells, middle ear cavities within normal limits. IMPRESSION: Atrophy and chronic small vessel ischemic changes as discussed above. Communicating hydrocephalus could be considered. No CT evidence of intracranial hemorrhage. If symptoms persist or worsen, or there is high clinical suspicion of intracranial abnormality, MRI could be performed. Chest x-ray: Radiologist's Impression: [address] [address] XRay Report Signed Patient: Armani Lucio MR#: [id number] : 1940 Acct:[id number] Age/Sex: 84 / M Date of Service: 12/05/24 Loc: ED Accession Number: [id number] Procedure: XR chest 1V Ordering Provider: Leroy Stokes D.O. PROCEDURE: XR CHEST 1V INDICATIONS: Chest Pain TECHNIQUE: One view of the chest was acquired. COMPARISON: None. FINDINGS: Mildly enlarged cardiopericardial silhouette. Mildly prominent kelli, mild pulmonary vascular congestion. Mild bibasilar subsegmental atelectasis. Mild calcifications of the aortic arch and tortuous descending aorta. Moderate degenerative changes of the thoracic spine with mild dextroscoliosis. No pneumothorax, no pleural effusion, no lobar consolidation Irregularity of the right clavicle mid diaphysis most likely related to 2 remote fracture with callus formation possible nonunion. IMPRESSION: Mildly enlarged cardiopericardial silhouette. Pulmonary vascular congestion. Other findings as above. If symptoms persist or worsen, or there is high clinical suspicion of thoracic abnormality, CT chest could be performed. MDM Narrative Medical decision making narrative: Vital signs, nurse triage note, medication list, previous ER visits, and all imaging studies reviewed. CTA head and neck showed occlusion of V1 and V3 segments of the of the left vertebral artery with reconstitution of V2 and V4 segments. Age indeterminate. Case discussed with Dr. Pal formerly [facility] neurologist on-call who recommended patient be on aspirin and statin control at this time. He does not qualify for dual platelet anti therapy at this time. Differential diagnosis aneurysm, TIA, CVA, hemorrhage, orthostatic hypotension. CT head showed atrophy and chronic small-vessel ischemic changes. No evidence of intracranial hemorrhage. Chest x-ray showed mildly enlarged cardiopericardial silhouette. Pulmonary vascular congestion. BUN 23 creatinine 1.44 glucose 120 troponin normal BNP normal. He is allergic to statins apparently he breaks out so I have recommended trying niacin at this point. Discharge Plan Departure Patient Disposition: Home Clinical Impression: Near syncope, Occlusion of left vertebral artery Instructions: DI for Syncope in Adults (Fainting) Activity Restrictions/Additional Instructions: Return with new or worsening symptoms. Follow up with PCP next week for continuity of care. Start niacin which is rviz-efd-suonxjc for cholesterol control. Prescriptions: No Action aspirin 81 MG tablet,delayed release (DR/EC) 81 mg PO QDAY Qty: 0 cholecalciferol (vitamin D3) [Vitamin D3] 1,000 UNIT tablet 1,000 unit PO QDAY Qty: 0 omeprazole 20 mg capsule,delayed release(DR/EC) 20 mg PO DAILY Qty: 0 metformin 500 mg tablet 500 mg PO BID Qty: 60 5RF citalopram 20 mg tablet 20 mg PO DAILY Qty: 90 1RF Rx Instructions: take with 10 mg tablet to total 30 mg daily melatonin 5 mg capsule 5 mg PO BEDTIME cyanocobalamin (vitamin B-12) 1,000 mcg capsule 1,000 mcg PO DAILY psyllium [Metamucil] PO DAILY Referrals: Santos Cowan DO [Primary Care Provider, [facility]] Stand Alone Forms: Patient Portal/API
[2024-12-05 13:16] LABS: Add Manual Diff / Slide Review NO; Hematocrit 39.4 % (41-53); Hemoglobin 13.5 g/dL (13.5-17.5); Lymphocytes Absolute Auto 1200 /uL (1100-4500); Mean Corpuscular HGB Conc 34.3 % (30-36); Mean Corpuscular Hemoglobin 32.8 PG (26-34); Mean Corpuscular Volume 95.7 fL (80-100); Platelet Count 267 X10^3/uL (150-400)
[2024-12-05 13:25] LABS: INR 1.0 (0.9-1.3); Prothrombin Time 11.1 SECONDS (9.4-12.5)
[2024-12-05 13:27] LABS: PTT Partial Thromboplastin Tim 32 SECONDS (25.1-36.5)
[2024-12-05 13:31] LABS: Alanine Aminotransferase 20 IU/L (<50); Albumin 4.6 g/dL (3.5-5.0); Albumin Globulin Ratio 1.4 (1.0-2.8); Alkaline Phosphatase 100 U/L (38-126); Blood Urea Nitrogen 23 mg/dL (9-20); Calcium 9.6 mg/dL (8.4-10.2); Carbon Dioxide 22 mmol/L (22-32); Chloride 105 mmol/L (98-107); Creatine Kinase 71 U/L (55-170); Estimated Glomerular Filt Rate 48 mL/min (>60); Globulin 3.3 g/dL (1.7-4.1); Glucose 120 mg/dL (70-99); HEMOLYSIS < 15 (0-50); Lipase 56 U/L (23-300); Magnesium 1.9 mg/dL (1.6-2.3); Potassium 4.3 mmol/L (3.4-5.1); Sodium 139 mmol/L (137-145); Total Protein 7.9 g/dL (6.3-8.2)
[2024-12-05 13:43] LABS: NT-proBNP (BNP-Adult 18+) 63 pg/mL (<450); Troponin I < 0.012 ng/mL (0.01-0.034)
== END 2024-12-05 15:46 | disposition home or self-care (01) ==
PROVIDERS: Emergency Provider Family Medicine; PCP Family Medicine
DX: R55 Syncope and collapse (principal); R51.9 Headache, unspecified; I65.02 Occlusion and stenosis of left vertebral artery; I10 Essential (primary) hypertension; W18.30XA Fall on same level, unspecified, initial encounter; Z79.82 Long term (current) use of aspirin
CPT/HCPCS: 36415; 70450; 70496; 70498; 71045; 80053; 82550; 83690; 83735; 83880; 84484; 85025; 85610; 85730; 93005; 99283; 99284; Q9967